=== PATIENT | male | born 1940 | race Caucasian/White ===

== ENCOUNTER 2016-12-31 09:51 | Day surgery (SDC) | payer MEDICARE ==
[2016-12-28 09:50] VITALS: BMI 31.8
[~2016-12-31 09:51] MED LIST: LIDOCAINE 1% 20 ML VIAL (10MG/ML) FOR IV START INTRADERMA PRN
[2016-12-31 10:29] VITALS: TEMP 97.4
[2016-12-31 10:30] LABS: Glucose,Whole Blood 124 mg/dL (75-99)
[2016-12-31] MEDS: LACTATED RINGERS 1,000 ML IV SCH ×2 (10:30→12:22)
[2016-12-31] MEDS ORDERED: PROPOFOL 10 MG/ML 20 ML VIAL IV ONE (12:23)
[2016-12-31 12:57] VITALS: RESP 16
--- NOTE | 2016-12-31 13:00 | P.PCN ---
Date of Procedure: 12/31/16 Procedure(s) Performed: Procedures: 1. Esophagogastroduodenoscopy and biopsy. 2. Total colonoscopy. Preoperative diagnosis: Iron deficiency anemia and rectal bleeding. Postoperative diagnosis: 1. Small sliding hiatal hernia with no obvious esophagitis or complicated reflux disease. 2. Mild antral gastritis. 3. Low- grade internal hemorrhoids with no evidence of bleeding, otherwise, normal colonoscopy. Preparation: HalfLytely prep. Sedation: Was provided by anesthesia. Brief clinical history: The patient is a 76-year-old male who was recently evaluated in the office regarding iron deficiency anemia and rectal bleeding. He had a prior colonoscopy around 7 years ago and possible upper endoscopy. No upper GI complaints. Procedure: With the patient on his left lateral decubitus position and after informed consent and adequate sedation, I passed the Olympus-GIF 160 video upper endoscope through the cricopharyngeus down the esophagus. GE junction was around 36 cm from the incisors and there was a small sliding hiatal hernia. The esophagus did not show any obvious erosions, ulcers, strictures or Gallego 's esophagus. The endoscope was then passed into the stomach which was insufflated with air and inspected in detail including the retroflex cardia. There was some mottling and erythema in the antrum but no ulcers or erosions. Pyloric channel, duodenal bulb, post bulbar area and descending duodenum appeared within normal limits. However, because of his iron deficiency anemia, I obtained biopsies from the duodenum in addition to biopsies from the antrum and esophagus before the endoscope was withdrawn and I proceeded with the colonoscopy. Perianal area did not show any fissures or fistulas. There were no masses felt on digital rectal examination. The Olympus CFQ 160L video colonoscope was then inserted in the rectum in the usual fashion and advanced to the cecum. The mucosa appeared healthy. No polyps or tumors were seen or any obvious diverticular disease or bleeding. No other pathology to account for iron deficiency anemia. I retroflexed the endoscope in the rectum before the endoscope was withdrawn. Low-grade internal hemorrhoids were noted with no evidence of bleeding. The patient tolerated the procedure well. Plan: The patient was reassured. He will follow-up in the office as planned and would keep you updated on his progress.
[2016-12-31 13:09] VITALS: BP 151/80; PULSE 67
== END 2016-12-31 13:44 | disposition home or self-care (01) ==
LOC: ORWHC2ENDO 09:51
DX: K64.8 Other hemorrhoids (principal); D50.9 Iron deficiency anemia, unspecified; K21.0 Gastro-esophageal reflux disease with esophagitis; K44.9 Diaphragmatic hernia without obstruction or gangrene; K29.50 Unspecified chronic gastritis without bleeding; I25.10 Atherosclerotic heart disease of native coronary artery without angina pectoris; I10 Essential (primary) hypertension; E78.5 Hyperlipidemia, unspecified; E11.9 Type 2 diabetes mellitus without complications; Z79.82 Long term (current) use of aspirin; Z79.899 Other long term (current) drug therapy
CPT/HCPCS: 43239; 45378; 88305; 88342; J2704